=== PATIENT | female | born 1980 | race Caucasian/White ===

== ENCOUNTER 2020-08-18 14:25 | Outpatient (REF) | payer BC, SELFPAY ==
[2020-08-18 15:01] LABS: MANUAL DIFF FLAG NO
[2020-08-18 15:05] LABS: Basophils Percent Auto 0.3 % (0-2); Eosinophils Absolute Auto 0.2 X10*3/uL (0.0-0.4); Eosinophils Percent Auto 1.9 % (0-4); Hematocrit 44.3 % (37-47); Hemoglobin 14.9 g/dl (12.0-16.0); Imm Gran Abs Auto 0.04 X10*3/uL (0.00-0.03); Imm Gran Pct Auto 0.5 % (0.0-0.4); Lymphocytes Absolute Auto 1.8 X10*3/uL (1.2-4.9); Mean Corpuscular HGB Conc 33.6 g/dl (31.0-35.0); Mean Corpuscular Hemoglobin 30.3 pg (27.0-33.0); Mean Platelet Volume 10.3 fL (9.4-12.3); Monocytes Absolute Auto 0.6 X10*3/uL (0.1-1.2); Monocytes Percent Auto 7.2 % (2-11); Neutrophils Percent Auto 69.1 % (45-73); Platelet Count 205 X10*3/uL (160-400); Red Blood Count 4.92 X10*6/uL (4.20-5.50); Red Cell Distribution Width 12.2 % (11.0-16.0); White Blood Count 8.7 X10*3/uL (4.8-10.8)
[2020-08-18 15:16] LABS: Estimated Average Glucose 114 mg/dL; Hemoglobin A1c % 5.6 %
[2020-08-18 15:33] LABS: Alanine Aminotransferase 23 U/L (0-31); Albumin Level 4.3 g/dL (3.5-5.0); Alkaline Phosphatase 70 U/L (39-117); Anion Gap 12 (12-20); Aspartate Amino Transferase 21 U/L (5-31); Bilirubin Total 1.8 mg/dL (0.0-1.0); Blood Urea Nitrogen 11 mg/dL (9-16); Carbon Dioxide 26 mmol/L (22-29); Chloride 107 mmol/L (96-108); Cholesterol 163 mg/dL; Estimated Glomerular Filt Rate > 60; Glucose Fasting 99 mg/dL (60-99); HDL Cholesterol 33 mg/dL; LDL Cholesterol Calculated 85 mg/dl; Potassium 4.2 mmol/l (3.3-5.1); Sodium 141 mmol/L (135-145); Total Protein 6.9 g/dL (6.5-8.0); Triglycerides 226 mg/dL
[2020-08-18 15:54] LABS: Thyroid Stimulating Hormone 1.03 uIU/mL (0.32-4.0); Vitamin D 25-OH Total 32.1 ng/mL (>30)
== END 2020-08-18 14:26 | disposition home or self-care (01) ==
LOC: HO.LAB 14:25
PROVIDERS: PCP Internal Medicine; Visit Provider Internal Medicine
DX: Z00.00 Encounter for general adult medical examination without abnormal findings (principal); R73.03 Prediabetes; E55.9 Vitamin D deficiency, unspecified
CPT/HCPCS: 36415; 80053; 80061; 82306; 83036; 84443; 85025

== ENCOUNTER 2024-10-21 07:30 | Outpatient (REF) | payer OTHER, SELFPAY ==
[2024-10-21 10:30] LABS: MANUAL DIFF FLAG NO
[2024-10-21 10:32] LABS: Basophils Percent Auto 0.4 % (0-2); Eosinophils Absolute Auto 0.2 X10*3/uL (0.0-0.4); Eosinophils Percent Auto 2.1 % (0-4); Hematocrit 41.6 % (37.0-47.0); Hemoglobin 14.5 g/dl (12.0-16.0); Imm Gran Abs Auto 0.03 X10*3/uL (0.00-0.03); Imm Gran Pct Auto 0.4 % (0.0-0.4); Lymphocytes Absolute Auto 1.4 X10*3/uL (1.2-4.9); Lymphocytes Percent Auto 20.2 % (20-40); Mean Corpuscular HGB Conc 34.9 g/dl (31.0-35.0); Mean Corpuscular Hemoglobin 30.7 pg (27.0-33.0); Mean Corpuscular Volume 88.1 fL (80.0-98.0); Mean Platelet Volume 11.5 fL (9.4-12.3); Monocytes Absolute Auto 0.4 X10*3/uL (0.1-1.2); Monocytes Percent Auto 6.2 % (2-11); Neutrophils Percent Auto 70.7 % (45-73); Platelet Count 176 X10*3/uL (160-400); Red Blood Count 4.72 X10*6/uL (4.20-5.50); Red Cell Distribution Width 12.1 % (11.0-16.0); White Blood Count 7.1 X10*3/uL (4.8-10.8)
[2024-10-21 10:45] LABS: Estimated Average Glucose 137 mg/dL; Hemoglobin A1C 178.2663 umol/L; Hemoglobin A1c % 6.4 % (<6.0); Total Hemoglobin (HGBA1C) 3822.7341 umol/L
[2024-10-21 11:17] LABS: Alanine Aminotransferase 41 U/L (0-31); Albumin Level 4.1 g/dL (3.5-5.0); Alkaline Phosphatase 65 U/L (39-117); Anion Gap 10 (12-20); Aspartate Amino Transferase 45 U/L (5-31); Bilirubin Total 1.7 mg/dL (0.0-1.0); Blood Urea Nitrogen 10 mg/dL (9-16); Calcium 9.1 mg/dL (8.4-10.2); Carbon Dioxide 23 mmol/L (22-29); Chloride 107 mmol/L (96-108); Cholesterol 162 mg/dL (<200); Estimated Glomerular Filt Rate > 60; Free T4 (Free Thyroxine) 1.07 ng/dL (0.71-1.85); Glucose Fasting 139 mg/dL (60-99); HDL Cholesterol 35 mg/dL (>40); LDL Cholesterol Calculated 81 mg/dL (<100); Potassium 3.9 mmol/L (3.3-5.1); Sodium 136 mmol/L (135-145); Thyroid Stimulating Hormone 0.94 uIU/mL (0.32-4.0); Total Protein 7.3 g/dL (6.5-8.0); Triglycerides 231 mg/dL (<150); Vitamin D 25-OH Total 35.6 ng/mL (>30)
[2024-10-24 10:48] LABS: TS Negative Control Passed; TS Panel A 0; TS Panel B 1; TS Positive Control Passed; TSpotTB Negative (Negative)
== END 2024-10-21 07:31 | disposition home or self-care (01) ==
LOC: HO.10HDL 07:30
PROVIDERS: Visit Provider Internal Medicine
DX: Z00.00 Encounter for general adult medical examination without abnormal findings (principal); Z13.6 Encounter for screening for cardiovascular disorders; Z11.1 Encounter for screening for respiratory tuberculosis; R73.03 Prediabetes; E55.9 Vitamin D deficiency, unspecified
CPT/HCPCS: 36415; 80053; 80061; 82306; 83036; 84439; 84443; 85025; 86481

== ENCOUNTER 2025-02-03 15:56 | Outpatient (AMB) | payer OTHER, SELFPAY ==
--- OUTSIDE RECORDS SUMMARY | 2025-02-03 15:58 | XMS_ITS | Clinical Summary ---
Author Organization [facility] [employer] [facility] lin Address [address] [facility] [place] [address] Care Team Providers Care Data Center Solutions Architect Name Role Phone Unavailable Primary Care Provider Unavailabl e Social History Tobacco Use Types Packs/Day Years Used Date Smoking Tobacco: Never Assessed Comments Unknown Sex and Gender Information Value Date Recorded Sex Assigned at Female 05/18/2021 9:14 AM EDT Legal Sex Female 9:40 AM EST Gender Identity Female 05/18/2021 9:14 AM EDT Sexual Orientation Straight 05/18/2021 9: 14 AM EDT Last Filed Vital Signs Vital Sign Reading Time Taken Comments Blood Pressure - - Pulse 94 11/02/2020 10:30 AM EST Temperature 36.1 ??C (97 ??F) 11/02/2020 10:30 AM EST Respiratory Rate - - Oxygen Saturation 98% 11/02/2020 10:30 AM EST Inhaled Oxygen Concentration - - Weight - - Height - - Body Mass Index - - Plan of Treatment Health Maintenance Due Date Last Done Comments Depression: Screening Annual ly using PHQ-2/9 in Adults 18 yrs or above (or HM Modifier)([facility]) 1982 Hepatitis C Virus Infection in Adolescents and Adults: Screening (or Modifier) ([facility]) 2000 [facility] Screening Reminder: Lorraine graff for all adults ([facility]) 2000 Tobacco Smoking Cessation: i n Adults excluding Women: Behavioral and Pharmacotherapy Interventions ([facility]) 2000 DTaP/Tdap/Td Vaccines ([facility]) (1 - Tdap) 2001 zzRETIRED Lipid Screening: O nce for Women aged 20 to 45 yrs ([facility]) 2002 Cervical Cancer Screenin 1-65 yrs of age (or Modifier) 2003 Cervical Cancer Screening: P ap every 3 yrs pts age 21-65 2003 Cervical Cancer: Pap Screeni ng with Modifier timing ([facility]) 2003 Cervical Cancer: hrHPV alone or with cotesting Pap for Pts 30-65yrs screening every 5yrs ([facility]) 2003 COVID-19 Vaccine Screening: Initial Series and Booster Status ([facility]) (2023- season) 2024 Flu Vaccination: Yearly for ages 18mos through 64 years (or Modifier)([facility]) 04/16/2025 Zoster/Shingles Vaccine Seri es Screening: Adults aged 18+ yrs (or HM Modifiers)([facility]) (1 of 2) 2032 Pneumococcal Vaccination Scr eening: Pts 0-19 & 19-49 yrs of age ([facility]) Aged Out No longer eligible based on patient's age to complete this topic Medical Devices Not on file
--- OUTSIDE RECORDS SUMMARY | 2025-02-03 15:58 | XMS_ITS | Clinical Summary ---
Author Organization [facility] Address [address] [id number] Phone Care Team Providers Care Aluminum Shingle Roofer Name Role Phone Unavailable Primary Care Provider Unavailabl e Immunizations Immunization Administration Dates Next Due COVID-19 (Pre-07/08) Moderna Vaccine, mRNA, PF 07/19/2023 COVID-19 (Pre) Pfizer Vaccine, mRNA, PF 09/22/2020,09/02/2020 Hepatitis B Adult 12/26/2008, 8,04/19/2008,1998 Influenza Quadrivalent Prese rvative Free IM 07/01/2023 Influenza Trivalent Preserva tive Free IM 06/19/2024 Influenza, Unspecified Formulation 07/01/2023 MMR 04/17/1994,11/30/1983 Tdap 03/17/2013 Varicella 06/15/1989 Social History Tobacco Use Types Packs/Day Years Used Date Smoking Tobacco: Never Assessed Education Answer Date Recorded Are you interested in more education? Not on cyril e 09/26/2023 Are you concerned about learning? Not on file 09/26/2023 No 09/26/2023 No 09/26/2023 Digital Access Answer Date Recorded No 09/26/2023 No 09/26/2023 Reliable internet access at home? Not on file 09/26/2023 Device with a working camera? Not on file Comments Unknown Sex and Gender Information Value Date Recorded Sex Assigned at Not on file Legal Sex Female 11:07 AM EST Gender Identity Not on file Sexual Orientation Not on file Plan of Treatment Health Maintenance Due Date Last Done Comments DEPRESSION SCREENING 1994 SMOKING Hx and SMOKELESS TOBACCO SCREENING 1995 HEPATITIS B SCREENING 2000 HEPATITIS C SCREENING 2000 HIV ONE-TIME SCREENING (18-65 YEARS) 2000 PAP SMEAR 2003 MAMMOGRAM 2022 Adult Td,Tdap Booster 03/17/2023 03/17/2013 COVID-19 VACCINE ( season) 2024 07/19/2023, 09/22/2020, 09/02/2020 HEPATITIS B VACCINES Completed 12/26/2008, 05/25/2008, 04/19/2008, Additional history exists INFLUENZA VACCINE Completed 06/19/2024, , 07/01/2023 HEPATITIS A VACCINES Aged Out No long er eligible based on patient's age to complete this topic HIB VACCINES Aged Out No longer eligi ble based on patient's age to complete this topic MENINGOCOCCAL VACCINES (ACWY) Aged Out No longer eligible based on patient's age to complete this topic PNEUMOCOCCAL VACCINES (0-49 years) Aged Out No longer eligible based on patient's age to complete this topic Medical Devices Not on file Additional Source Comments The information contained in this document represents components of the legal health record. It is not the complete legal health record.[facility]
--- NOTE | 2025-02-03 15:59 | A.OFFPC_ITS ---
Vital Signs 02/03/25 16:01 Height 5 ft 2.75 in Weight 99.79 kg BMI 39.3 BP 132/94 H Respiration 14 Pulse 81 Pulse Source Pulse Oximeter Temp 97.2 F Temp Source Temporal Artery Scan Pulse Oximetry (%) 99 Oxygen Delivery Method Room Air Intake Visit Reasons: Routine Multiple Coil Winder Required: No Accompanied by: Self / Same As Patient Allergies Penicillins Adverse Reaction (Mild, Verified 02/03/25 16:02) Unknown Medication List - Last Reconciled 02/03/25 by JERRY Lindsay epinephrine (EpiPen 2-Shravan) 0.3 mg (0.3 mL) IM Q10M PRN [Fiber PO] ondansetron 4 mg PO Q8H PRN rimegepant (Nurtec ODT) 75 mg PO Q OTHER DAY PRN tirzepatide (Mounjaro) 2.5 mg (0.5 mL) subcut QWEEK HPI HPI Comments History of Present Illness Details 44-year-old female with history of migra abbie, prediabetes, and class 2 obesity presents to the office today for management of chronic conditions and to establish care. Recent lab work showed prediabetes with hemoglobin A1c of 6.4%. 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 However, she is eating smaller meals that are healthier but given her hours she does still eat fast food. She is not a fan of meal prepping as she does not like reheated food. She does exercise but not as much as she should. She tries to stretch and do exercises in her office while at work. She is interested in trialing GLP 1 medication. She is also requesting a new prescription for her migraines. She reports that she gets about 3-4 debilitating migraines every month. She does question whether these are related to hormones. They are associated with nausea and vomiting as well as light sensitivity and blurred vision. Rarely she does have aura. She has missed work due to her symptoms. She does have an IUD but no estrogen containing OCP. She has trialed Triptans which have not been effective. 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 The 1st episode was last year after getting her hair dyed when she developed itchy scalp and then broke out with hives all over her body. She took Benadryl and Pepcid with good effect. This happened a 2nd time after getting her hair dyed but then has had several episodes without any known cause. She has been using Benadryl and Pepcid and denies any anaphylaxis. No known allergies except penicillins. She is also reporting pain in the R elbow ongoing for several months. Lateral aspect describes a pulling sensation. ROS General: No fevers, malaise, unintentional weight loss HEENT: No blurred vision, diplopia. No sore throat, nasal congestion, rhinorrhea, sinus pain, ear pain Cardiovascular: No chest pain, palpitations, or leg edema Respiratory: No shortness of breath, wheezing, cough MSK:see hpi Neuro: No weakness, paresthesias. see HPI Skin: see hpi Exam: Constitutional - Awake and Alert, No apparent distress Eyes - PERRLA, EOMI Cardiovascular - S1S2, RRR, No edema Respiratory - Normal lung expansion, Normal respiratory effort, No respiratory distress, CTA bilaterally Extremities - no calf tenderness bilaterally, no swelling Musculoskeletal - Pain over the lateral epicondyle. No overlying edema, erythema, swelling Skin - Warm/Dry . No lesions Neurological - Alert & oriented x3 Psychological - Appropriate affect [facility] Medical History (Updated 02/05/25 @ 14:14 by JERRY Lindsay) Urticaria of unknown origin Physical exam (Primary Care) Vital Signs: Last Vital Signs Temp 97.2 F 02/03/25 16:01 Pulse 81 02/03/25 16:01 Resp 14 02/03/25 16:01 BP 132/94 H 02/03/25 16:01 Pulse Ox 99 02/03/25 16:01 Oxygen Delivery Method Room Air 02/03/25 16:01 BMI result Body Mass Index 39.3 Coding Level of Care Code New Pt Level 4 (23558) Complex EM visit Add On G2211 Diagnoses Hair loss L65.9 Severe obesity E66.01 Urticaria of unknown origin L50.9 Lateral epicondylitis M77.10 Prediabetes R73.03 Migraines G43.909 Assessment & Plan Assessment & Plan (1) Hair loss: Code(s): L65.9 - Nonscarring hair loss, unspecified Category: Medical Plan: Will check hormone levels possibly contributing to hair loss. We will check DHEA, TSH, progesterone, testosterone, estradiol, prolactin. Can take supplements such as biotin (2) Severe obesity: Code(s): E66.01 - Morbid (severe) obesity due to excess calories Category: Medical Plan: Weight loss efforts encouraged. Encouraged healthy diet with increased protein, vegetables, fruit intake. Do recommend meal prepping to prevent poor meal choices given work hours. Recommend exercising regularly, at least 4 days weekly. She is interested in GLP 1. Marylin ordered however if not approved, patient is advised she needs to call her insurance company to find out which medication if any will be covered (3) Urticaria of unknown origin: Code(s): L50.9 - Urticaria, unspecified Category: Medical Plan: Referral to deputy editor in chief placed. She is given an EpiPen in case of anaphylaxis. (4) Lateral epicondylitis: Code(s): M77.10 - Lateral epicondylitis, unspecified elbow Category: Medical Plan: Recommend ibuprofen, ice, rest as needed. She is also given gentle exercises to perform. If no improvement, advised to call the office for referral to physical therapy (5) Prediabetes: Code(s): R73.03 - Prediabetes Category: Medical Plan: Worsening A1c, now 6.4%. Strongly advised improving diet low in carbohydrates and highly processed foods. Recommend weight loss efforts as above. She is also requesting GLP 1 which also will assist in lowering glucose levels. (6) Migraines: Code(s): G43.909 - Migraine, unspecified, not intractable, without status migrainosus Category: Medical Plan: Nurteq prescribed for treatment of migraines. If needed can be prescribed for prevention as well should she have an increase in recurrence. Counseled on side effects Orders: Orders Estradiol Ultra Sensitive 02/03/25 E66.01 - Morbid (severe) obesity due to excess calories, L65.9 - Nonscarring hair loss, unspecified, R53.83 - Other fatigue Testosterone, Free/Total 02/03/25 E66.01 - Morbid (severe) obesity due to excess calories, L65.9 - Nonscarring hair loss, unspecified, R53.83 - Other fatigue Vitamin D 25-OH Total 02/03/25 E66.01 - Morbid (severe) obesity due to excess calories, L65.9 - Nonscarring hair loss, unspecified, R53.83 - Other fatigue Progesterone 02/03/25 E66.01 - Morbid (severe) obesity due to excess calories, L65.9 - Nonscarring hair loss, unspecified, R53.83 - Other fatigue DHEA Sulfate 02/03/25 E66.01 - Morbid (severe) obesity due to excess calories, L65.9 - Nonscarring hair loss, unspecified, R53.83 - Other fatigue Prolactin 02/03/25 E66.01 - Morbid (severe) obesity due to excess calories, L65.9 - Nonscarring hair loss, unspecified, R53.83 - Other fatigue Referrals Allergy & Immunology Referral L50.9 - Urticaria, unspecified Medications: New rimegepant (Nurtec ODT) 75 mg PO Q OTHER DAY PRN 10 tabs 3RF migraine headache tirzepatide (Mounjaro) for 4 weeks 2.5 mg (0.5 mL) subcut QWEEK 2 mL 0RF epinephrine (EpiPen 2-Shravan) for 2 doses 0.3 mg (0.3 mL) IM Q10M PRN 2 ea 0RF anaphylaxis L50.9 - Urticaria, unspecified ondansetron 4 mg PO Q8H PRN 30 tabs 0RF nausea and vomiting
--- OUTSIDE RECORDS SUMMARY | 2025-02-03 15:59 | XMS_ITS | Patient Health Record ---
Author Organization [facility] Address [address] [place] [address] Care Team Providers Care Pro Shop Attendant Name Role Phone Bladimir Grace MD Primary Care Provider Emery Zamarripa Unavailable [phone] Allergies Allergen (clinical drug ingredient) Drug/Non Drug Allergy documented on EMR Reaction Allergy Type Onset Date Status penicillin G Penicillin G Sodium Unknown Drug Allergy Active Reason For Referral No Information Medications Medication SIG (Take, Route, Frequency, Duration) Notes Start Date End Date Status Aleve 220 MG 1 tablet with food o r milk as needed Orally as needed Activ e Vitamin D3 25 MCG (1000 UT) 1 tablet Orally Once a day A ctive CoQ-10 100 MG 1 capsule with a divina l Orally Once a day Active Immunizations Vaccine Route Administration Date Status Comme nts Influenza Unknown 06/16/2020 Administered Social History Tobacco Use: Social History Observation Description Date Details (start date - stop date) Never Smoker NA - NA Tobacco Use/Smoking Question Answer Notes Patient is a nonsmoker Alcohol Screen Question Answer Notes Did you have a drink containing alcohol in the p ast year? Yes How often did you have a dri nk containing alcohol in the past year? Never (0 point) How often did you have 6 or more drinks on one occasion in the past year? Never (0 point) Points 0 Interpretation Negative Section Notes: Nonsmoker; no sig alcohol Problems Problem Type SNOMED Code ICD Code Onset Dates Problem Status W/U Status Risk Notes Problem Family history of polyp of colon (855580317) Family history of colonic polyps (Z83.71) Active confirmed Problem Preprocedural examination (071065668871171) Preprocedural examination (Z01.818) Active confirmed Plan Of Treatment No Information Insurance Providers Payer Name Payer Address Payer Phone Subscriber Number Group Number Insured Name Patient Relationship to Insured Coverage Start Date Coverage End Date [facility] [address] [place] [address] [phone] [id number] ALTON MEDINA Self - patient is the insured Medical (General) History Medical History History ICD Code Denies [place],DM,CVA,Lung disease,renal dise ase Surgical History Surgery Date(Month/Year) Cholecystectomy 2005
[2025-02-03 16:01] VITALS: BP 132/94; PULSE 81; RESP 14; TEMP 36.2; O2SAT 99; BMI 39.3
== END 2025-02-03 16:45 | disposition home or self-care (01) ==
LOC: HO.HMCHD 15:57
PROVIDERS: PCP Internal Medicine; Visit Provider Physician Assistant
DX: L65.9 Nonscarring hair loss, unspecified (principal); E66.01 Morbid (severe) obesity due to excess calories; L50.9 Urticaria, unspecified; M77.10 Lateral epicondylitis, unspecified elbow; R73.03 Prediabetes; G43.909 Migraine, unspecified, not intractable, without status migrainosus

== ENCOUNTER 2025-04-30 07:26 | Outpatient (REF) | payer OTHER, SELFPAY ==
--- OUTSIDE RECORDS SUMMARY | 2025-04-30 07:29 | XMS_ITS | Clinical Summary ---
Author Organization [facility] Address [facility] [place] [address] Care Team Providers Care Computing Architect Name Role Phone None Primary Care Provider Unavailabl e Allergies Active Allergy Reactions Criticality Noted Date Comments Penicillins Other (See Comments) 06/30/2023 Throat complaints Medications ondansetron ODT (Zofran-ODT) 4 mg disintegrating tablet Take 1 tablet by mouth every 8 hours as needed for Nausea. 20 tablet Active Social History Tobacco Use Types Packs/Day Years Used Date Smoking Tobacco: Never Assessed DH IPV Inpatient Questions Answer Date Recorded Does Anyone Try to Keep You From Having Contact with Others or Doing Things Outside Your Home? no 06/30/2023 Feels Threatened by Someone no 06/16 Feels Unsafe at Home or Work/School no 06/30/2023 Physical Signs of Abuse Present no 06/30/2023 Comments Unknown Sex and Gender Information Value Date Recorded Sex Assigned at Not on file Legal Sex Female 10:06 AM EDT Gender Identity Not on file Sexual Orientation Not on file Last Filed Vital Signs Vital Sign Reading Time Taken Comments Blood Pressure 146/92 06/30/2023 1:44 PM EDT Pulse 86 06/30/2023 1:44 PM EDT Temperature 36.4 C (97.6 F) 06/30/2023 1:44 PM EDT Respiratory Rate - - Oxygen Saturation 99% 06/30/2023 1:44 PM EDT Inhaled Oxygen Concentration - - Weight - - Height - - Body Mass Index - - Plan of Treatment Health Maintenance Due Date Last Done Comments HIV screen 2000 Hepatitis C Screening 2000 Hepatitis B vaccine (0-59 yrs) and Risk (1) 2001 Tetanus/Diphtheria/Pertussis Vaccines (1 - Tdap) 04/11 HPV test 2012 PAP Smear 2012 Breast Cancer Share Decision Needed 2022 Breast Cancer screening 2022 Covid-19 Vaccine (1 - 2023- season) 2024 Influenza (Flu) vaccine (1 o f 1 - Influenza standard series) 05/17/2025 Insurance [employer] Care Teams Computing Architect Relationship Specialty Start Date End Date None None PCP - General 06/30/23
--- OUTSIDE RECORDS SUMMARY | 2025-04-30 07:29 | XMS_ITS | Patient Health Record ---
Author Organization [facility] Address [address] [place] [address] Care Team Providers Care Salad Counter Attendant Name Role Phone Lesly (RETIRED) Bladimir HARDEN Primary Care Provide r Unavailable Emery Núñez Unavailable [phone] Allergies Allergen (clinical drug ingredient) Drug/Non Drug [...] W/U Status Risk Notes Problem Family history o f colonic polyps (Z83.71) Active confirmed Problem Preprocedural examination ([id number]) Preprocedural examination (Z01.818) Active confirmed Plan Of Treatment No Information Insurance Providers Payer Name Payer Address Payer Phone Subscriber Number Group Number Insured Name Patient Relationship to Insured Coverage Start Date Coverage End Date [facility] [address] [place] [address] [id number] ALTON MEDINA Self - patient is the insured Medical (General) History Medical History History ICD Code Denies [place],DM,CVA,Lung disease,renal dise ase Surgical History Surgery Date(Month/Year) Cholecystectomy 2006
--- OUTSIDE RECORDS SUMMARY | 2025-04-30 07:29 | XMS_ITS | Clinical Summary ---
Author Organization [facility] Address [address] [facility] [place] [address] Care Team Providers Care Bakeshop Cleaner Name Role Phone Unavailable Primary Care Provider [...] 94 11/02/2020 10:30 AM EST Temperature 36.1 C (97 F) 11/02/2020 10:30 AM EST Respiratory Rate - - Oxygen Saturation 98% 11/02/2020 10:30 AM EST Inhaled Oxygen Concentration - - Weight - - Height - - Body Mass Index - - Plan of Treatment Health Maintenance Due Date Last Done Comments Depression: Screening Annual ly using PHQ-2/9 in Adults 18 yrs or above (or HM Modifier)([facility]) 2000 Hepatitis C Virus Infection in Adolescents and Adults: Screening (or Modifier) ([facility]) 2000 [facility] Screening Reminder: Lorraine graff for all adults ([facility]) 2000 Tobacco Smoking Cessation: i n Adults excluding Women: Behavioral and Pharmacotherapy Interventions ([facility]) 2000 DTaP/Tdap/Td Vaccines ([facility]) (1 - Tdap) 2001 Cervical Cancer Screenin 1-65 yrs of age (or Modifier) 2003 Cervical Cancer Screening: P ap every 3 yrs pts age 21-65 2003 Cervical Cancer: Pap Screeni ng with Modifier timing ([facility]) 2003 Cervical Cancer: hrHPV alone or with cotesting Pap for Pts 30-65yrs screening every 5yrs ([facility]) 2003 COVID-19 Vaccine Screening: Initial Series and Booster Status ([facility]) (2023- season) 2024 Flu Vaccination: Yearly for ages 18mos through 64 years (or Modifier)([facility]) 04/16/2025 Zoster/Shingles Vaccine Seri es Screening: Adults aged 18+ yrs (or HM Modifiers)([facility]) (1 of 2) 2032 Pneumococcal Vaccination Scr eening: Pts 0-19 & 19-49 yrs of age ([facility]) Aged Out No longer eligible based on patient's age to complete this topic Medical Devices Not on file
[2025-05-06 14:43] LABS: Testosterone, Free 2.3 pg/mL (0.1-6.4)
[2025-05-09 09:32] LABS: Estradiol Ultra Sensitive 122 pg/mL
== END 2025-04-30 07:27 | disposition home or self-care (01) ==
LOC: HO.10HDL 07:26
PROVIDERS: Visit Provider Physician Assistant
DX: R53.83 Other fatigue (principal); E66.01 Morbid (severe) obesity due to excess calories; L65.9 Nonscarring hair loss, unspecified
CPT/HCPCS: 36415; 82306; 82627; 82670; 84144; 84146; 84402; 84403

== ENCOUNTER 2025-05-03 07:55 | Outpatient (AMB) | payer OTHER, SELFPAY ==
--- NOTE | 2025-05-03 07:56 | A.OFFPC_ITS ---
Vital Signs 05/03/25 08:02 Height 5 ft 2.75 in Weight 97.976 kg BMI 38.6 BP 118/90 H Respiration 16 Pulse 82 Pulse Source Pulse Oximeter Temp 97.7 F Temp Source Temporal Artery Scan Pulse Oximetry (%) 99 Oxygen Delivery Method Room Air Intake Visit Reasons: Annual Health Services Information Specialist Required: No Accompanied by: Self / Same As Patient Allergies Penicillins Adverse Reaction (Mild, Verified 05/03/25 08:01) Unknown HPI HPI Comments History of Present Illness Details 45-year-old female with history of predi abetes, migraines, class 2 obesity presents to the office today for management of chronic conditions and to establish care. She currently lives in apartment by herself with the exception of her pets. She feels safe there. She very rarely consumes alcohol. Very occasionally will eat an edible to assist with sleep. No illicit drug use. She has never used tobacco products. Migraines-has been experiencing since age 12. Was recently started on Nurtec which she was initially taking very frequently up to daily or every other day. She has also started drinking caffeine and has noted a significant decrease in the need for the Nurtec. No vision changes, weakness, numbness tingling. Prediabetes/class 2 obesity-last hemoglobin A1c was 6.4%. Has been working on weight loss efforts. Zepbound was not approved. Looking for a referral to nutrition Lateral epicondylitis-has been resting and performing exercises at home with limited relief. Reports pain starts in the lateral epicondyle and has been experiencing shooting pains to the wrist. Denies any weakness. She is right- hand dominant. Health maintenance: Last screening mammogram 09/2023, overdue Follows annually with simulation analyst, last Pap 07/2023 with 5 year follow-up advised ROS: General: No fevers, malaise, unintentional weight loss HEENT: No blurred vision, diplopia. No sore throat, nasal congestion, rhinorrhea, sinus pain, ear pain. No hearing loss Neck - no adenopathy Cardiovascular: No chest pain, palpitations, or leg edema Respiratory: No shortness of breath, wheezing, cough Breast: No pain, palpable lumps, nipple inversion GI: No dysphagia, odynophagia, globus sensation. No abdominal pain, nausea, vomiting, diarrhea, constipation, melena, hematochezia : No dysuria, hematuria, increased urinary frequency, decreased urinary output. POLYMER MATERIALS CONSULTANT: No abn vaginal bleeding or discharge MSK: No myalgia, back pain, arthralgias Neuro: see hpi Psych: no depression/anxiery. No AH/VH. No SI/HI Skin: No rashes or lesions EXAM: Constitutional - Awake and Alert, No apparent distress Eyes - PERRLA, EOMI. Anicteric Ears - external ears normal, canals clear, TMs intact and pearly miles with good cone of light Nose- septum midline, nares clear, no sinus tenderness Mouth/throat- mucosa moist, tongue and uvula midline, no erythema/edema or tonsillar adenopathy. Neck-trachea midline, thyroid symmetric without palpable nodules, no adenopathy Cardiovascular - S1S2, RRR, No edema Respiratory - Normal lung expansion, Normal respiratory effort, No respiratory distress, CTA bilaterally Gastrointestinal - NT / ND; +BS; No rebound or guarding - No CVA tenderness Extremities - no calf tenderness bilaterally, no swelling Musculoskeletal - Normal inspection, normal ROM Skin - Warm/Dry, no concerning lesions Neurological - Alert & oriented x3, CN II-XII in tact, 5/5 strength BUE and BLE, 2+ patellar reflexes, sensation intact Psychological - Appropriate affect PFSH Medical History (Updated 02/26/25 @ 18:10 by JERRY Lindsay) Urticaria of unknown origin Surgical History (Updated 05/03/25 @ 08:11 by JERRY Lindsay) S/P cholecystectomy Family History (Updated 05/03/25 @ 08:13 by JERRY Lindsay) Mother Atrial fibrillation COPD (chronic obstructive pulmonary disease) Diabetes Father Diabetes Maternal Grandmother Breast cancer Social History (Updated 05/03/25 @ 08:14 by JERRY Lindsay) Household Members: None Household Members Other:: pets Housing: Apartment Are you a primary manager critical care unit to a significant other at home: No Do you presently have visiting nurse or other home services: No Alcohol intake: current Alcohol intake frequency: holidays/special occasions only Patient Tobacco Use Status: Never used Tobacco Substance Use Type: Marijuana Questionnaire PHQ-9 Over the last 2 weeks, how often have you been bothered by any of the following problems? 1. Little interest or pleasure in doing things: not at all 2. Feeling down, depressed, or hopeless: not at all 3. Trouble falling or staying asleep, or sleeping too much: several days 4. Feeling tired or having little energy: several days 5. Poor appetite or overeating: not at all 6. Feeling bad about yourself - or that you are a failure or have let yourself or your family down: not at all 7. Trouble concentrating on things, such as reading the newspaper or watching television: not at all 8. Moving or speaking so slowly that other people could have noticed. Or the opposite - being so fidgety or restless that you have been moving around a lot more than usual: not at all 9. Thoughts that you would be better off or of hurting yourself in some way: not at all Total score: 2 Source: Developed by Drs. Emery Carlos, oRs Thompson, Lawrence Weiss and colleagues, with an educational sun from [employer]. Thrive Questionnaire Date Thrive assessed: 05/03/25 I am a: Patient What is your living situation today?: I have a steady place to live Within the past 12 months, did the food you bought not last and you didn't have the money to get more?: Never true Within the past 12 months, did you worry whether your food would run out before you got money to buy more?: Never true Do you have trouble paying for medicines?: No Do you have trouble getting transportation to medical appointments?: No Do you have trouble paying your heating and electricity bill?: No Do you have trouble taking care of your child, family member or friend?: No Do you have trouble with day-to-day activities such as bathing, preparing meals, shopping, managing finances, etc.?: No Are you currently unemployed and looking for a job?: No Are you interested in more education?: No Please select the resources that you would like help with: None THRIVE Score: 0 MICHALE-7 AMB Questionnaire MICHAEL-7 Date MICHAEL - 7 assessed: 05/03/25 Feeling nervous, anxious, or on edge: 0 = Not at all Not being able to stop or control worryin = Not at all Worrying too much about different things: 0 = Not at all Trouble relaxin = Not at all Being so restless that it is hard to sit still: 0 = Not at all Becoming easily annoyed or irritable: 0 = Not at all Feeling afraid as if something awful might happen: 0 = Not at all Total MICHAEL-7 score (0-4 normal; 5-9 mild; 10-14 moderate; 15-21 severe): 0 Source: Developed by Drs. Emery Carlos, Ros Thompson, Lawrence Weiss and colleagues, with an educational sun from [employer]. Physical exam (Primary Care) Vital Signs: Last Vital Signs Temp 97.7 F 05/03/25 08:02 Pulse 82 05/03/25 08:02 Resp 16 05/03/25 08:02 BP 118/90 H 05/03/25 08:02 Pulse Ox 99 05/03/25 08:02 Oxygen Delivery Method Room Air 05/03/25 08:02 BMI result Body Mass Index 38.6 Tobacco/Smoking Status: Tobacco use Status Patient Tobacco Use Status Never used Tobacco 05/03/25 08:14 PHQ-9: PHQ-9 Score PHQ-9: Total score 2 05/03/25 08:08 Thrive Assessment: Date of Thrive Assessment Date Thrive assessed 05/03/25 05/03/25 08:08 Coding Level of Care Code Est Pt Level 4 (41218) Est Pt Prev Care 40-64y(37235) Diagnoses Routine medical exam Z00.00 Lateral epicondylitis M77.10 Prediabetes R73.03 Class II obesity E66.812 Migraines G43.909 Assessment & Plan Assessment & Plan (1) Routine medical exam: Code(s): Z00.00 - Encounter for general adult medical examination without abnormal findings Plan: Labs reviewed. Plan are below (2) Lateral epicondylitis: Code(s): M77.10 - Lateral epicondylitis, unspecified elbow Category: Medical Plan: Refer to PT. Continue exercises and rest. NSAIDs (3) Prediabetes: Code(s): R73.03 - Prediabetes Category: Medical Plan: Referred nutrition. Continue weight loss efforts. (4) Class II obesity: Code(s): E66.812 - Obesity, class 2 Category: Medical Plan: Referred nutrition. Continue weight loss efforts. (5) Migraines: Code(s): G43.909 - Migraine, unspecified, not intractable, without status migrainosus Category: Medical Plan: Stable. Continue caffeine and nurtec prn Plan Routine screening labs as ordered below Continue with screening mammograms, Pap smears, colonoscopies Continue following for annual skin exams and use sun protection Annual eye exams Wear seat belt in car Recommend regular exercise and healthy diet Labs to be completed prior to next Orders: Orders Hemoglobin A1c Today E66.812 - Obesity, class 2, G43.909 - Migraine, unspecifi ed, not intractable, without status migrainosus, M77.11 - Lateral epicondylitis, right elbow, R73.03 - Prediabetes, Z00.00 - Encounter for general adult medical examination without abnormal findings, Z12.31 - Encounter for screening mammogram for malignant neoplasm of breast Liver Panel Today E66.812 - Obesity, class 2, G43.909 - Migraine, unspecified, not intractable, without status migrainosus, M77.11 - Lateral epicondylitis, right elbow, R73.03 - Prediabetes, Z00.00 - Encounter for general adult medical examination without abnormal findings, Z12.31 - Encounter for screening mammogram for malignant neoplasm of breast Basic Metabolic Panel Today E66.812 - Obesity, class 2, G43.909 - Migraine, unspecified, not intractable, without status migrainosus, R73.03 - Prediabetes, Z00.00 - Encounter for general adult medical examination without abnormal findings MM tomosynthesis screening BI Today Z00.00 - Encounter for general adult medical examination without abnormal findings, Z12.31 - Encounter for screening mammogram for malignant neoplasm of breast PT Evaluation and Treatment Today M77.11 - Lateral epicondylitis, right elbow Medications: Refilled rimegepant 75 mg PO Q OTHER DAY PRN 10 tabs 3RF migraine headache
--- OUTSIDE RECORDS SUMMARY | 2025-05-03 08:00 | XMS_ITS | Clinical Summary ---
Author Organization [facility] lin Address [address] [facility] [employer] [place] [address] Care Team Providers Care Data Transcriber Name Role Phone Unavailable Primary Care Provider [...] Adults 18 yrs or above (or HM Modifier)([facility]) 2000 Hepatitis C Virus Infection in Adolescents and Adults: Screening (or Modifier) ([facility]) 2000 [facility] Screening Reminder: Lorraine graff for all adults ([facility]) 2000 Tobacco Smoking Cessation: i n Adults excluding Women: Behavioral and Pharmacotherapy Interventions ([facility]) 2000 DTaP/Tdap/Td Vaccines ([facility]) (1 - Tdap) 2001 Cervical Cancer Screenin 1-65 yrs of age (or Modifier) 2003 Cervical Cancer Screening: P ap every 3 yrs pts age 21-65 2003 Cervical Cancer: Pap Screeni ng with Modifier timing ([facility]) 2003 Cervical Cancer: hrHPV alone or with cotesting Pap for Pts 30-65yrs screening every 5yrs ([facility]) 2003 COVID-19 Vaccine Screening: Initial Series and Booster Status ([facility]) (2023- season) 2024 Flu Vaccination: Yearly for ages 18mos through 64 years (or Modifier)([facility]) 04/16/2025 Zoster/Shingles Vaccine Seri es Screening: Adults aged 18+ yrs (or HM Modifiers)([facility]) (1 of 2) 2032 Pneumococcal Vaccination Scr eening: Pts 0-19 & 19-49 yrs of age ([facility]) Aged Out No longer eligible based on patient's age to complete this topic Medical Devices Not on file
--- OUTSIDE RECORDS SUMMARY | 2025-05-03 08:00 | XMS_ITS | Clinical Summary ---
Author Organization [facility] Address [address] [id number] Phone Care Team Providers Care Medical Office Clerk Name Role Phone Unavailable Primary Care Provider Unavailabl e Immunizations Immunization Administration Dates Next Due COVID-19 (Pre-07/08) Moderna Vaccine, mRNA, PF 07/19/2023 COVID-19 (Pre) Pfizer Vaccine, mRNA, PF 09/22/2020,09/02/2020 Hepatitis B Adult 12/26/2008, 8,04/19/2008,1998 INFLUENZA, SPLIT VIRUS, TRIVALENT PF 06/19/2024 Influenza Quadrivalent Prese rvative Free IM 07/01/2023 Influenza, Unspecified Formulation 07/01/2023 MMR 04/17/1994,11/30/1983 Tdap [...] Hx and SMOKELESS TOBACCO SCREENING 1995 HEPATITIS C SCREENING 2000 HIV ONE-TIME SCREENING (18-6 5 YEARS) 2000 PAP SMEAR 2003 MAMMOGRAM 2022 Adult Td,Tdap Booster 03/17/2023 03/17/2013 COVID-19 VACCINE (4 - 2023-2 5 season) 2024 07/19/2023, 09/22/2020, 09/02/2020 HEPATITIS A VACCINES Aged Out No long er eligible based on patient's age to complete this topic HIB VACCINES Aged Out No longer eligi ble based on patient's age to complete this topic MENINGOCOCCAL VACCINES (ACWY) Aged Out No longer eligible based on patient's age to complete this topic MENINGOCOCCAL VACCINES (B) Aged Out N o longer eligible based on patient's age to complete this topic PNEUMOCOCCAL VACCINES (0-49 years) Aged Out No longer eligible b ased on patient's age to complete this topic Medical Devices Not on file Additional Source Comments The information contained in this document represents components of the legal health record. It is not the complete legal health record.[facility]
--- OUTSIDE RECORDS SUMMARY | 2025-05-03 08:00 | XMS_ITS | Clinical Summary ---
Author Organization [facility] Address [facility] [place] [address] Care Team Providers Care Breaker Off Name Role Phone None Primary Care Provider [...] standard series) 05/17/2025 Insurance [employer] Care Teams Breaker Off Relationship Specialty Start Date End Date None None PCP - General 06/30/23
--- OUTSIDE RECORDS SUMMARY | 2025-05-03 08:00 | XMS_ITS | Patient Health Record ---
Author Organization [facility] Address [address] [place] [address] Care Team Providers Care Remanufacturing Technician Name Role Phone Lesly (RETIRED) Bladimir HARDEN Primary Care Provide r Unavailable Emery Núñez Unavailable [phone] Allergies Allergen (clinical drug ingredient) Drug/Non Drug [...] Problem Family history of polyp of colon (119908303) Family history of colonic polyps (Z83.71) Active confirmed Problem Preprocedural examination ([id number]) Preprocedural examination (Z01.818) Active confirmed Plan Of Treatment No Information Insurance Providers Payer Name Payer Address Payer Phone Subscriber Number Group Number Insured Name Patient Relationship to Insured Coverage Start Date Coverage End Date [facility] [address] [place] [address] [phone] [id number] ALTON MEDINA Self - patient is the insured Medical (General) History Medical History History ICD Code Denies PA,DM,CVA,Lung disease,renal dise ase Surgical History Surgery Date(Month/Year) Cholecystectomy 2005
[2025-05-03 08:02] VITALS: BP 118/90; PULSE 82; RESP 16; TEMP 36.5; O2SAT 99; BMI 38.6
== END 2025-05-03 08:22 | disposition home or self-care (01) ==
LOC: HO.HMCHD 07:56
PROVIDERS: PCP Internal Medicine; Visit Provider Physician Assistant
DX: Z00.00 Encounter for general adult medical examination without abnormal findings (principal); M77.11 Lateral epicondylitis, right elbow; E66.812 Obesity, class 2; Z68.38 Body mass index [BMI] 38.0-38.9, adult; R73.03 Prediabetes; G43.909 Migraine, unspecified, not intractable, without status migrainosus